=== PATIENT | male | born 1975 | race Two or more races ===

== ENCOUNTER 2018-10-14 03:01 | Emergency (ER) | payer SELFPAY ==
[~2018-10-14] VITALS: Ht 165.1 cm; Wt 73.9 kg
[2018-10-14 03:20] VITALS: BP 134/77
[2018-10-14] MEDS ORDERED: ALBUTEROL SULF8.5 GM INH (03:24)
[2018-10-14] MEDS ORDERED: ZITHROMAX250 MG ORAL (03:24)
[2018-10-14] MEDS ORDERED: PREDNISONE20 MG ORAL (03:24)
--- NOTE | 2018-10-14 03:25 | Emergency Room Report ---
History of Present Illness General Chief Complaint: Upper Respiratory Illness Source: Patient, Significant Other Present Illness HPI Is a 43-year-old male with no past medical history. He presents with chief complaint shortness of breath and cough for the last 2 weeks. No fever or chills. Losing his voice. Now with sore throat. Worse with inspiration. Worse with exertion. Better with rest. Coughing is nonproductive in nature. Allergies: Coded Allergies: No Known Allergies (Unverified , 10/14/18) Patient History Past Medical History: none, see triage record, old chart reviewed Past Surgical History: none Pertinent Family History: none Social History: Denies: smoking Immunizations: other Reviewed Nursing Documentation: PMH: Agreed; PSxH: Agreed Nursing Documentation-PMH Hx Cardiac Problems: No Hx Hypertension: No Hx Pacemaker: No Hx Asthma: No Hx COPD: No Hx Diabetes: No Hx Cancer: No Hx Gastrointestinal Problems: No Hx Dialysis: No Hx Neurological Problems: No Hx Cerebrovascular Accident: No Hx Seizures: No Review of Systems Eye: Denies: eye pain, blurred vision ENT: Denies: ear pain, nose congestion, throat swelling Respiratory: Reports: cough, shortness of breath Cardiovascular: Denies: chest pain, palpitations Gastrointestinal: Denies: abdominal pain, diarrhea, nausea, vomiting Musculoskeletal: Denies: back pain, joint pain Skin: Denies: rash Neurological: Denies: headache, numbness Endocrine: Denies: increased thirst, increased urine Hematologic/Lymphatic: Denies: easy bruising All Other Systems: negative except mentioned in HPI Physical Exam Vital Signs Date Time Temp Pulse Resp B/P (MAP) Pulse Ox O2 Delivery O2 Flow Rate FiO2 10/14/18 03:04 98.2 77 18 134/77 99 Room Air 10/14/18 03:20 99 vitals normal Sp02 EP Interpretation: reviewed, normal General Appearance: well appearing, no apparent distress, alert Head: normocephalic, atraumatic Eyes: bilateral eye PERRL, bilateral eye EOMI ENT: hearing grossly normal, normal pharynx, pharyngeal erythema Neck: full range of motion, supple, no meningismus Respiratory: chest non-tender, lungs clear, normal breath sounds, decreased breath sounds, other - Coughing with inspiration Cardiovascular #1: regular rate, rhythm, no murmur Gastrointestinal: normal bowel sounds, non tender, no mass, no organomegaly, no bruit, non-distended Musculoskeletal: back normal, gait/station normal, normal range of motion Psychiatric: mood/affect normal Skin: warm/dry Medical Decision Making Diagnostic Impression: Primary Impression: Atypical pneumonia Additional Impression: Upper respiratory infection Qualified Codes: J06.9 - Acute upper respiratory infection, unspecified ER Course Patient with upper respiratory infection now with laryngitis and worsening symptoms. Concerning for secondary atypical pneumonia. No evidence any sepsis , ACS, PE to name a few. Better after breathing treatment. We'll discharge home. Last Vital Signs Date Time Temp Pulse Resp B/P (MAP) Pulse Ox O2 Delivery O2 Flow Rate FiO2 10/14/18 03:20 77 18 Room Air 99 10/14/18 03:04 98.2 134/77 99 Status: improved Disposition: HOME, SELF-CARE Condition: Stable Scripts Azithromycin* (ZITHROMAX*) 250 Mg Tablet 250 MG ORAL DAILY, #6 TAB 0 Refills Take two tables once daily for 1 day, then one tablet once daily for 4 days. Prov: Prashant Peace MD 10/14/18 Prednisone* (PREDNISONE*) 20 Mg Tablet 40 MG ORAL DAILY, #8 TAB Prov: Prashant Peace MD 10/14/18 Albuterol Sulfate* (ALBUTEROL SULFATE MDI*) 8.5 Gm Hfa.aer.ad 2 PUFF INH Q4H PRN for cough/wheezing, #1 EA 0 Refills Prov: Prashant Peace MD 10/14/18 Patient Instructions: Upper Respiratory Infection, Adult Additional Instructions: Salt water gargle. Increase fluid. Follow-up with your doctor in 7 days. Return if worse. Prashant Peace MD Oct 14, 2018 03:25
[2018-10-14] MEDS ORDERED: Albuterol ud Inhalation HHN ONE (03:30)
[2018-10-14] MEDS ORDERED: NKM (03:38)
[2018-10-14 03:45] VITALS: BP 122/71
== END 2018-10-14 03:42 | disposition home or self-care (01) ==
LOC: EMR 03:32
DX: J18.9 Pneumonia, unspecified organism (principal); J06.9 Acute upper respiratory infection, unspecified
CPT/HCPCS: 94640; 99284; J7512